=== PATIENT | female | born 1950 | race Caucasian/White ===

== ENCOUNTER 2016-12-25 05:48 | Outpatient (CLI) | payer MEDICARE, OTHER ==
[~2016-12-25] VITALS: Ht 160 cm; Wt 74.8 kg
[2016-12-25] MEDS ORDERED: PANT40TA3 PO (13:36)
[2016-12-25] MEDS ORDERED: ATEN50TA PO (13:36)
[2016-12-25] MEDS ORDERED: MULT1CAP27 PO (13:36)
[2016-12-25] MEDS ORDERED: LOVA20TA2 PO (13:36)
[2016-12-25] MEDS ORDERED: LORA10TA76 PO (13:36)
[2016-12-25] MEDS ORDERED: IBAN150T PO (13:36)
[2016-12-25] MEDS ORDERED: RANI-515 PO (13:36)
[2016-12-25] MEDS ORDERED: CALC-6 PO (13:36)
== END 2016-12-25 14:03 ==
LOC: PREOP 05:48
PROVIDERS: ATTEND Otolaryngology Otolaryngology/Facial Plastic Surgery
DX: Z01.818 Encounter for other preprocedural examination (principal); H95.89 Other postprocedural complications and disorders of the ear and mastoid process, not elsewhere classified; Z96.22 Myringotomy tube(s) status

== ENCOUNTER 2016-12-28 06:25 | Day surgery (SDC) | payer MEDICARE, OTHER ==
[~2016-12-28] VITALS: Ht 160 cm; Wt 74.8 kg
[~2016-12-28 06:25] MED LIST: ATEN50TA PO; CALC-6 PO; IBAN150T PO; LORA10TA76 PO; LOVA20TA2 PO; MULT1CAP27 PO; PANT40TA3 PO; RANI-515 PO
--- NOTE | 2016-12-28 06:44 | Progress Note-Pre Operative ---
Pre-Operative Progress Note H&P Reviewed The H&P was reviewed, patient examined and no changes noted. Date H&P Reviewed: Dec 28, 2016 Time H&P Reviewed: 06:35 Pre-Operative Diagnosis: Chrinc Right GENOVEVA DANIELLE TIRADO MD Dec 28, 2016 6:44 am
[2016-12-28] MEDS ORDERED: LACTATED RINGERS 1,000 ML IV PRN ×2 (06:49→07:03)
[2016-12-28 07:00] VITALS: BP 121/64
[2016-12-28] MEDS ORDERED: FAMOTIDINE 20MG/2ML IV (PEPCID) IV ONE (07:15)
[2016-12-28] MEDS ORDERED: MUPIROCIN 2% OINT 22 GM (BACTROBAN) TUBE ONE (07:50)
[2016-12-28] MEDS ORDERED: SEVOFLURANE (ULTANE) 15 ML INHAL SOLN ONE (07:54)
[2016-12-28] MEDS ORDERED: proPOfol 200 MG/20 ML (DIPRIVAN) VIAL IV ONE (07:54)
[2016-12-28] MEDS ORDERED: LIDOCAINE PF 2% 10 ML (XYLOCAINE) AMP ONE (07:54)
[2016-12-28] MEDS ORDERED: LACTATED RINGERS 1,000 ML IV ONE (07:54)
[2016-12-28] MEDS ORDERED: ONDANSETRON 4 MG/2 ML (SDV) Z0FRAN ONE (07:57)
--- NOTE | 2016-12-28 08:19 | Progress Note-Post Operative ---
Post-Operative Progess Note Pre-Operative Diagnosis Chrinc Right GENOVEVA Post-Operative Diagnosis same Post-Op Procedure Note Date of Procedure: Dec 28, 2016 Name of Procedure: Right Myringotomy with T-Tube Anesthesia Type mask DANIELLE TIRADO MD Dec 28, 2016 8:19 am
[2016-12-28] MEDS ORDERED: APAP 325 MG/10.15 ML LIQ (TYLENOL) UDC PO PRN (08:30)
[2016-12-28 09:00] VITALS: BP 100/54
[2016-12-28] MEDS ORDERED: CIPR5DRO RIGHT EAR (09:06)
[2016-12-28 09:30] VITALS: BP 115/58
--- NOTE | 2016-12-28 09:49 | Anesthesia-General Post-Op ---
General Patient Condition Mental Status/LOC: Same as Preop Cardiovascular: Satisfactory Nausea/Vomiting: Absent Respiratory: Satisfactory Pain: Controlled Complications: Absent Post Op Complications Complications None Follow Up Care/Instructions Patient Instructions None needed. Anesthesia/Patient Condition Patient Condition Patient is doing well, no complaints, stable vital signs, no apparent adverse anesthesia problems. No complications reported per nursing. D/C home per [facility] Criteria: Yes YESSICA RIVERA DO Dec 28, 2016 09:49
== END 2016-12-28 09:48 | disposition home or self-care (01) ==
LOC: DELPENDDIS → SDC 06:25
PROVIDERS: ATTEND Otolaryngology Otolaryngology/Facial Plastic Surgery
DX: H65.21 Chronic serous otitis media, right ear (principal)
CPT/HCPCS: 87081

== ENCOUNTER 2017-06-22 20:08 | Outpatient (CLI) | payer MEDICARE, OTHER ==
[~2017-06-22 20:08] MED LIST changes: +CIPR5DRO RIGHT EAR
== END 2017-06-23 04:55 | disposition home or self-care (01) ==
LOC: SLEEP 20:08
PROVIDERS: ATTEND Nurse Practitioner Family
DX: G47.33 Obstructive sleep apnea (adult) (pediatric) (principal); I10 Essential (primary) hypertension; R06.83 Snoring; I49.9 Cardiac arrhythmia, unspecified; F51.11 Primary hypersomnia; F33.8 Other recurrent depressive disorders; G47.52 REM sleep behavior disorder; G47.61 Periodic limb movement disorder; G47.411 Narcolepsy with cataplexy; G47.31 Primary central sleep apnea
CPT/HCPCS: 95810